=== PATIENT | female | born 1955 | race Caucasian/White ===

== ENCOUNTER 2018-02-27 20:45 | Emergency (ER) | payer BC ==
[2018-02-27] MEDS: HYDROcodone/APAP 5/325MG 1 TAB TABLET PO (21:49)
== END 2018-02-27 22:45 | disposition home or self-care (01) ==
LOC: ER 20:45
DX: S90.31XA Contusion of right foot, initial encounter (principal); X58.XXXA Exposure to other specified factors, initial encounter; Y93.89 Activity, other specified; Y92.89 Other specified places as the place of occurrence of the external cause; Y99.8 Other external cause status
CPT/HCPCS: 73630; 99284

== ENCOUNTER 2019-01-22 06:35 | Emergency (ER) | payer BC ==
[~2019-01-22] VITALS: Ht 160 cm; Wt 53.5 kg
[~2019-01-22 06:35] MED LIST: TRAM50TA PO
[2019-01-22 06:50] VITALS: BP 163/83
[2019-01-22] MEDS ORDERED: POLY10DR3 EACHEYE (07:18)
--- NOTE | 2019-01-22 07:19 | PHYS DOC ---
Past Medical History Past Medical History: Other Additional Past Medical Histor: Oral Ca Past Surgical History: Other Additional Past Surgical Histo: Oral Cancer Alcohol Use: None Drug Use: None Adult General Chief Complaint Chief Complaint: EYE PROBLEMS HPI HPI Patient is a 63 year old female who presents with b/l red eyes with discharge. Pt reports a head cold/sinus pressure beginning a few days ago then today eyes matted shut. Review of Systems Review of Systems Cardiovascular: No additional information not addressed in HPI [] GI: Denies abdominal pain, nausea, vomiting, bloody stools or diarrhea [] : Denies dysuria or hematuria [] Musculoskeletal: Denies back pain or joint pain [] Integument: Denies rash or skin lesions [] Neurologic: Denies headache, focal weakness or sensory changes [] Endocrine: Denies polyuria or polydipsia [] All other systems were reviewed and found to be within normal limits, except as documented in this note. Allergies Allergies Allergies Coded Allergies Type Severity Reaction Last Updated Verified No Known Drug Allergies 02/27/18 No Physical Exam Physical Exam Constitutional: Well developed, well nourished, no acute distress, non-toxic appearance. [] HENT: Normocephalic, atraumatic, bilateral external ears normal, oropharynx moist, no oral exudates, nose normal. [] Eyes: Pupils are equal round reactive to light anterior chambers quiet conjunctiva injected bilaterally mild discharge noted extraocular movement are intact visual acuity is 20/40 both eyes Neck: Normal range of motion, no tenderness, supple, no stridor. [] Cardiovascular:Heart rate regular rhythm, no murmur [] Lungs & Thorax: Bilateral breath sounds clear to auscultation [] Abdomen: Bowel sounds normal, soft, no tenderness, no masses, no pulsatile masses. [] Skin: Warm, dry, no erythema, no rash. [] no periorbital erythema. Neurologic: Alert and oriented X 3, normal motor function, normal sensory function, no focal deficits noted. [] Psychologic: Affect normal, judgement normal, mood normal. [] Current Patient Data Vital Signs Vital Signs Date Time Temp Pulse Resp B/P (MAP) Pulse Ox O2 Delivery O2 Flow Rate FiO2 01/22/19 06:50 98.6 103 22 163/83 (109) 97 Room Air 98.6 EKG EKG [] Radiology/Procedures Radiology/Procedures [] Course & Med Decision Making Course & Med Decision Making Pertinent Labs and Imaging studies reviewed. (See chart for details) []Suspect viral versus bacterial conjunctivitis symmetric findings on my exam trial of antibiotic drops return precautions discussed. Dragon Disclaimer Dragon Disclaimer This electronic medical record was generated, in whole or in part, using a voice recognition dictation system. Departure Departure Impression: Primary Impression: Conjunctivitis Disposition: HOME, SELF-CARE Condition: STABLE Referrals: [facility] THOMPSON MD (PCP) Scripts Polymyxin B Sulf/Trimethoprim (POLYMYXIN B-TMP EYE DROPS) 10 Ml Drops 1 DROP EACHEYE QID for 5 Days, #10 ML Prov: ODILON STEWART MD 01/22/19 ODILON STEWART MD Jan 22, 2019 07:19
== END 2019-01-22 07:35 | disposition home or self-care (01) ==
LOC: ER 06:35
DX: H10.89 Other conjunctivitis (principal); J00 Acute nasopharyngitis [common cold]
CPT/HCPCS: 99283